=== PATIENT | female | born 1940 | race Caucasian/White ===

== ENCOUNTER 2019-04-08 17:36 | Emergency (ER) | payer MEDICARE ==
--- OUTSIDE RECORDS SUMMARY | 2019-04-08 17:54 | XMS REPORT | Continuity of Care Document ---
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 Unavailable Sage Shabazz MD Primary Care Physician Unavailable Payers Date Identification Numbers Payment Provider Subscriber Effective: 2012 Policy Number: [id number] [employer] Romy jA PayID: [id number] [place] [address] Expires: 2012 Policy Number: [id number] [employer] Romy Aj PayID: [id number] [place] [address] Policy Number: [id number] Medicare Part B Romy Jean Marie PayID: [id number] [address] [place] [address] Problems Active Problems Provider Date Osteoporosis Sage Shabazz MD Onset: 08/10/2011 Preoperative cardiovascular examination Alex Fox MD Onset: 2017 Paroxysmal supraventricular tachycardia Alex Fox MD Onset: 2017 Essential hypertension Alex Fox MD Onset: 01/04/2018 Duodenal ulcer disease Sage Shabazz MD Onset: 01/12/2018 Spondylolysis Alex Fox MD Onset: 07/16/2018 Iron deficiency anemia Sage Shabazz MD Onset: 10/03/2018 Methicillin resistant Staphylococcus Sage Shabazz MD Onset: 2018 aureus Anemia Sage Shabazz MD Onset: 10/22/2018 Thoracic and lumbosacral neuritis Sage Shabazz MD Onset: 2018 Infection following a procedure, deep Sage Shabazz MD Onset: 10/22 incisional surgical site, initial encounter Family History Date Family Member(s) Observation Comments Father Lung Cancer bronchiogenic : age 64 Mother due to Natural Causes () Children None 4 step children Siblings 4 3 sisters and a brother alive and well Social History Type Date Description Comments Sex Unknown Marital Status Single has a significant other. Lives With Friends Occupation [employer] Work Status Retired ETOH Use 04/01/2019 Denies alcohol use Tobacco Use Start: Unknown End: Patient is a former quit in 2001. She was Unknown smoker 17 years old when she started smoking. Smoking Status Reviewed: 04/01/19 Patient is a former quit in 2001. She was smoker 17 years old when she started smoking. Allergies, Adverse Reactions, Alerts Active Allergies Reaction Severity Comments Date Codeine rash 01/02/2013 Medications Active Medications SIG Qnty Indications Ordering Date Provider Ondansetron dissolve one 60tabs Sage Shabazz 03/08/2019 4mg Tablets tablet on the MD Thierry Dispers tongue q6 as needed vomiting Tramadol HCL take one tablet 90tabs M51.16 Sage Shabazz 10/09/2017 50mg Tablets by mouth every 6 MD Thierry hours as needed for pain maximum daily dose=three tablets Reference #: [id number] Sotalol HCL (AF) 1/2 tablet by 180tabs Dominique 80mg mouth twice a Alex Jin MD Tablets day Rifampin Bacilio Cui 300mg Capsules TAMARA Omeprazole Mike [place] 40mg Capsules DR Garcia Clindamycin HCL Take One Capsule Unknown 300mg By Mouth Four Capsules Times A Day Maximum Daily Dose 4 Dicyclomine HCL Unknown 10mg Capsules Diltiazem HCL ER Coated Unknown Beads 120mg Caps ER 24HR Pantoprazole Sodium 1 po bid Unknown 40mg Tablets DR Fairbankshlorperazine 1 po q 8 hours Unknown Maleate as needed for 5mg Tablets nausea Magnesium 1 by mouth every Unknown 400mg Tablets day History Medications Doxycycline Hyclate Take One Unknown 03/04/2019 - 100mg Capsule By 03/05/2019 Capsules Mouth Twice A Day Sulfamethoxazole/Trimetho 1 tab by mouth 20tabs Sage Shabazz 02/27/2019 - prim DS twice a day for MD Thierry 03/09/2019 800-160mg Tablets 10 days Metronidazole 1 by mouth 40tabs A09 Mele Sage 02/27/2019 - 500mg Tablets every 6 hours MD Thierry 03/09/2019 for 10 days Ciprofloxacin HCL 1 by mouth 20tabs A09 Mele Sage 02/27/2019 - 500mg Tablets twice a day for MD Thierry 03/08/2019 10 days Centrum Silver 1 by mouth 30tabs Sage Shabazz 2018 - Tablets every day MD Thierry 02/27/2019 Vitamin C 1 by mouth 30caps Sage Shabazz 2018 - 500mg Capsules every day MD Thierry 02/27/2019 Doxycycline Hyclate 1 cap by mouth 20caps Sage Shabazz 10/22/2018 - 100mg twice a day MD Thierry 12/12/2018 Capsules Diltiazem HCL ER 1 by mouth 90ce Fox 10/22/2018 - 180mg Caps ER every day Alex Jin MD 04/01/2019 24HR Ascorbic Acid 1 by mouth 360tabs Yared Perez 10/16/2018 - 500mg Tablets twice a day 2018 Rifampin 1 by mouth 180capYared Jerry 10/16/2018 - 300mg Capsules twice a day 02/27/2019 Ferrous Sulfate 1 tablet twice 30tabs Yared Perez 10/16/2018 - 325mg Tablets a day 10/29/2018 Diltiazem HCL ER 1 by mouth 90ce Fox 07/02/2018 - 180mg Caps ER every day Alex Jin MD 10/22/2018 24HR Diltiazem CD 1 by mouth 90Sage June 12/06/2017 - 180mg Caps ER 24HR every day MD Thirery 07/02/2018 Cholestyramine dissolve and 60units R19.7 Sage Shabazz 10/25/2017 - 4gm Packet take contents MD Thierry 12/06/2017 of 1 packet in water or juice two times a day before meals Tylenol as needed Sage Shabazz 10/09/2017 - 325mg Capsules MD Thierry 02/27/2019 Celecoxib 1 by mouth 30caps M51.16 Sage Shabazz 08/23/2017 - 200mg Capsules every day as MD Thierry 10/09/2017 needed Gabapentin 1 by mouth tid 30caps Sage Shabazz 07/13/2016 - 300mg Capsules MD Thierry 08/23/2017 Acular 1 gtt in 5ml H04.122 Sage Shabazz 03/11/2016 - 0.5% Solution affected eye MD Thierry 10/25/2017 every 8 hours prn Citracal/Vitamin D Sage Shabazz 03/11/2016 - MD Thierry 10/09/2017 [id number] Tablets Citracal/Vitamin D Sage Shabazz 03/11/2016 - MD Thierry 03/11/2016 [id number] Tablets Naproxen 1 by mouth 60tabs Sage Shabazz 12/11/2013 - 500mg Tablets twice a day as MD Thierry 08/23/2017 needed with food Fluticasone Propionate 1 spray each 1units 465.9 Sage Shabazz 12/11/2013 - nostril daily MD Thierry 10/09/2017 50mcg/Act Suspension Benzonatate 1 po tid prn 60caps 465.9 Sage Shabazz 11/18/2013 - 200mg Capsules MD Thierry 12/11/2013 Suprep Bowel Prep use as 1box 154.0 Sage Shabazz 04/23/2013 - Solution directed, per MD Thierry 12/11/2013 office instructions. Codeine Sulfate 1 tab po qhs 30tabs 465.9 Parent, 09/27/2012 - 30mg Tablets prn cough MD Tesha 12/31/2012 Benzonatate 1 po tid prn 60caps 465.9 Gabbi, 07/20/2011 - 200mg Capsules MD Tesha 12/31/2012 Cefdinir 1 po bid for 10 20caps 486 Sage Shabazz 01/17/2011 - 300mg Capsules days MD Thierry 07/20/2011 Benzonatate 1 po tid prn 30caps 486 Sage Shabazz 01/17/2011 - 200mg Capsules MD Thierry 07/20/2011 Fosamax one po weekly 4tabs Sage Shabazz 08/09/2010 - 70mg Tablets MD Thierry 01/17/2011 Bactrim DS 1 po bid for 5 10tabs Sage Shabazz 07/06/2010 - 800-160mg Tablets days MD Thierry 01/17/2011 Centrum 1 po daily Sage Shabazz 07/06/2010 - Tablets MD Thierry 10/09/2017 Citracal/Vitamin D 1 po daily 180tabs Sage Shabazz 07/06/2010 - MD Thierry 03/11/2016 [id number] Tablets Imodium A-D prn Sage Shabazz 07/06/2010 - 2mg Tablets MD Thierry 10/09/2017 Naproxen 1 po bid Bacilio Cui - 500mg Tablets PA 10/09/2017 Carafate before lunch Florence, - 1GM/10ML Suspension and before Intik[facility] # 01/15/2018 dinner Omeprazole 1 po daily Florence, - 40mg Capsules DR Mckeon # 10/22/2018 Sucralfate tid Florence, - 1gm Tablets Intikb # 07/16/2018 Multivitamin Adult 1 by mouth Unknown - Tablets every day 10/22/2018 Furosemide 1 by mouth Unknown - 20mg Tablets every day 10/29/2018 Carafate 1 tab by mouth Unknown - 1gm Tablets four times a 10/28/2018 day for acid reflux Magnesium Oxide 1 by mouth Unknown - 400mg Tablets twice a day 10/29/2018 Potassium Chloride ER 1 by mouth Unknown - 20Meq every day 10/29/2018 Tablets ER Probiotic 1 by mouth day Unknown - Capsules 12/26/2018 Doxycycline Hyclate 1 cap by mouth Unknown - 100mg twice a day 12/30/2018 Capsules Doxycycline Hyclate Bacilio Cui - 100mg PA 03/11/2019 Tablets Bacilio Guevara - 4mg TBPK PA 03/11/2019 Sotalol HCL Unknown - 80mg Tablets 04/01/2019 Medications Administered in Office Medication SIG Qnty Indications Ordering Provider Date Echocardiography 2D, With M-Mode Jaylin Rivero 09/24/2018 With Spectral And Color Doppler Injection Echocardiography 2D, With M-Mode Jaylin Rivero 12/20/2017 With Spectral And Color Doppler Injection Immunizations CPT Code Status Date Vaccine Lot # [id number] Given 07/23/2018 Influenza High Dose 65&Up [id number] 91213 Given 08/23/2017 Influenza High Dose 65&Up [id number] 48132 Given 07/01/2016 Influenza High Dose 65&Up [id number] Q2038 Given 07/23/2015 Influenza Vaccine [id number] 32046 Given 07/23/2015 Prevnar 13 [id number] Q2038 Given 08/04/2014 Influenza Vaccine [id number] Q2038 Given 07/10/2013 Influenza Vaccine [id number] 47133 Given 04/23/2013 Tdap [id number] 96942 Given 09/27/2012 Zoster Vaccine, Live For Subcu [id number] Q2038 Given 07/27/2012 Influenza Vaccine [id number] Q2038 Given 06/20/2011 Influenza Vaccine [id number] 66604 Given 06/20/2011 Pneumococcal Vaccine [id number] 19619 Given 07/06/2010 Influenza Virus Whole [id number] 35349 Given 06/26/2009 Influenza Virus Whole 05960 Given 08/13/2008 Influenza Virus Whole Vital Signs Date Vital Result Comment 04/01/2019 2:17pm Height 65 inches 5'5" Weight 97.25 lb Weight 44.113 kg Body Temperature 97.0 F Body Temperature 36.1 C Heart Rate 96 /min O2 % BldC Oximetry 98 % Respiratory Rate 20 /min BP Systolic 86 mmHg BP Diastolic 58 mmHg Pain Level 4 belly pain BMI (Body Mass Index) 16.2 kg/m2 BP Systolic Recheck 102 mmHg BP Diastolic Recheck 66 mmHg 03/11/2019 10:54am Height 65 inches 5'5" Weight 91.00 lb Weight 41.278 kg Heart Rate 96 /min O2 % BldC Oximetry 97 % BP Systolic 98 mmHg BP Diastolic 50 mmHg Pain Level 8 stomach BMI (Body Mass Index) 15.1 kg/m2 03/08/2019 11:47am Weight 92.00 lb Weight 41.731 kg Body Temperature 98.0 F Body Temperature 36.7 C Heart Rate 88 /min O2 % BldC Oximetry 99 % Respiratory Rate 20 /min BP Systolic 102 mmHg BP Diastolic 48 mmHg Pain Level 0 02/27/2019 11:53am Weight 88.00 lb Weight 39.917 kg Body Temperature 98.0 F Body Temperature 36.7 C Heart Rate 88 /min O2 % BldC Oximetry 96 % Respiratory Rate 20 /min BP Systolic 74 mmHg BP Diastolic 42 mmHg Pain Level 0 BP Systolic Recheck 100 mmHg BP Diastolic Recheck 50 mmHg 01/14/2019 9:25am Height 65 inches 5'5" Weight 91.50 lb Weight 41.504 kg Heart Rate 115 /min O2 % BldC Oximetry 97 % BP Systolic 118 mmHg BP Diastolic 60 mmHg BMI (Body Mass Index) 15.2 kg/m2 12/27/2018 8:52am Height 65 inches 5'5" Weight 95.00 lb Weight 43.092 kg Body Temperature 98.2 F Body Temperature 36.8 C Heart Rate 112 /min O2 % BldC Oximetry 98 % BP Systolic 122 mmHg BP Diastolic 66 mmHg Pain Level 0 BMI (Body Mass Index) 15.8 kg/m2 11/26/2018 10:28am Height 65 inches 5'5" Weight 97.00 lb Weight 43.999 kg Heart Rate 102 /min O2 % BldC Oximetry 94 % BP Systolic 132 mmHg BP Diastolic 78 mmHg Pain Level 0 BMI (Body Mass Index) 16.1 kg/m2 2018 10:42am Weight 97.00 lb Weight 43.999 kg Body Temperature 98.0 F Body Temperature 36.7 C Heart Rate 65 /min O2 % BldC Oximetry 98 % Respiratory Rate 20 /min BP Systolic 120 mmHg BP Diastolic 58 mmHg Pain Level 0 11/19/2018 9:56am Height 65 inches 5'5" Weight 98.00 lb Weight 44.453 kg Heart Rate 107 /min O2 % BldC Oximetry 98 % BP Systolic 110 mmHg BP Diastolic 70 mmHg Pain Level 7 lower back BMI (Body Mass Index) 16.3 kg/m2 10/29/2018 8:36am Height 65 inches 5'5" Weight 94.75 lb Weight 42.979 kg Body Temperature 98.0 F Body Temperature 36.7 C Heart Rate 70 /min O2 % BldC Oximetry 96 % BP Systolic 122 mmHg BP Diastolic 68 mmHg Pain Level 7 mid back BMI (Body Mass Index) 15.8 kg/m2 10/22/2018 11:41am Weight 94.00 lb Weight 42.638 kg Body Temperature 97.3 F Body Temperature 36.3 C Heart Rate 101 /min O2 % BldC Oximetry 98 % Respiratory Rate 24 /min BP Systolic 80 mmHg BP Diastolic 58 mmHg Pain Level 8 BP Systolic Recheck 114 mmHg BP Diastolic Recheck 64 mmHg 07/23/2018 3:45pm Weight 115.00 lb Weight 52.164 kg Body Temperature 96.5 F Body Temperature 35.8 C Heart Rate 87 /min O2 % BldC Oximetry 96 % Respiratory Rate 17 /min BP Systolic 110 mmHg BP Diastolic 70 mmHg Pain Level 3 07/19/2018 9:25am Body Temperature 97.3 F Body Temperature 36.3 C Heart Rate 81 /min O2 % BldC Oximetry 97 % Respiratory Rate 18 /min BP Systolic 127 mmHg BP Diastolic 70 mmHg Pain Level 7 lower back 07/16/2018 2:18pm Height 63 inches 5'3" Weight 115.00 lb Weight 52.164 kg Heart Rate 85 /min O2 % BldC Oximetry 98 % BP Systolic 138 mmHg BP Diastolic 72 mmHg Pain Level 6 BMI (Body Mass Index) 20.4 kg/m2 04/11/2018 1:58pm Height 63 inches 5'3" Weight 118.00 lb Weight 53.525 kg Body Temperature 98.4 F Body Temperature 36.9 C Heart Rate 79 /min O2 % BldC Oximetry 99 % Respiratory Rate 20 /min BP Systolic 140 mmHg BP Diastolic 62 mmHg Pain Level 4 BMI (Body Mass Index) 20.9 kg/m2 03/30/2018 9:51am Weight 115.00 lb Weight 52.164 kg Body Temperature 98.2 F Body Temperature 36.8 C Heart Rate 83 /min O2 % BldC Oximetry 97 % Respiratory Rate 15 /min BP Systolic 138 mmHg BP Diastolic 68 mmHg Pain Level 5 lower back 01/26/2018 10:01am Weight 112.00 lb Weight 50.803 kg Body Temperature 97.2 F Body Temperature 36.2 C Heart Rate 76 /min O2 % BldC Oximetry 98 % Respiratory Rate 20 /min BP Systolic 128 mmHg BP Diastolic 76 mmHg Pain Level 0 01/22/2018 3:02pm Height 63.5 inches 5'3.50" Weight 114.00 lb Weight 51.710 kg Heart Rate 90 /min O2 % BldC Oximetry 98 % BP Systolic 160 mmHg BP Diastolic 72 mmHg BMI (Body Mass Index) 19.9 kg/m2 01/15/2018 2:39pm Height 63.5 inches 5'3.50" Weight 113.00 lb Weight 51.257 kg Body Temperature 98.8 F Body Temperature 37.1 C Heart Rate 82 /min O2 % BldC Oximetry 99 % Respiratory Rate 20 /min BP Systolic 122 mmHg BP Diastolic 60 mmHg Pain Level 0 BMI (Body Mass Index) 19.7 kg/m2 01/04/2018 11:40am Height 63.5 inches 5'3.50" Weight 115.00 lb Weight 52.164 kg Heart Rate 87 /min O2 % BldC Oximetry 98 % BP Systolic 158 mmHg BP Diastolic 76 mmHg Pain Level 10 back, left leg BMI (Body Mass Index) 20.0 kg/m2 12/06/2017 11:35am Height 63.5 inches 5'3.50" Weight 118.00 lb Weight 53.525 kg Body Temperature 97.5 F Body Temperature 36.4 C Heart Rate 78 /min O2 % BldC Oximetry 99 % Respiratory Rate 20 /min BP Systolic 152 mmHg BP Diastolic 72 mmHg Pain Level 0 BMI (Body Mass Index) 20.6 kg/m2 BP Systolic Recheck 148 mmHg BP Diastolic Recheck 80 mmHg 11/16/2017 10:04am Height 63.5 inches 5'3.50" Weight 120.00 lb Weight 54.432 kg Heart Rate 97 /min O2 % BldC Oximetry 98 % BP Systolic 124 mmHg BP Diastolic 62 mmHg Pain Level 7 back BMI (Body Mass Index) 20.9 kg/m2 10/25/2017 11:03am Height 63.5 inches 5'3.50" Weight 123.00 lb Weight 55.793 kg Body Temperature 97.5 F Body Temperature 36.4 C Heart Rate 73 /min O2 % BldC Oximetry 98 % Respiratory Rate 20 /min BP Systolic 168 mmHg BP Diastolic 62 mmHg Pain Level 8 BMI (Body Mass Index) 21.4 kg/m2 10/09/2017 11:49am Height 63.5 inches 5'3.50" Weight 123.00 lb Weight 55.793 kg Body Temperature 97.0 F Body Temperature 36.1 C Heart Rate 97 /min O2 % BldC Oximetry 98 % Respiratory Rate 20 /min BP Systolic 114 mmHg BP Diastolic 60 mmHg Pain Level 9 BMI (Body Mass Index) 21.4 kg/m2 08/23/2017 9:58am Height 63.5 inches 5'3.50" Weight 133.00 lb Weight 60.329 kg Body Temperature 98.0 F Body Temperature 36.7 C Heart Rate 71 /min O2 % BldC Oximetry 99 % Respiratory Rate 20 /min BP Systolic 128 mmHg BP Diastolic 60 mmHg Pain Level 9 BMI (Body Mass Index) 23.2 kg/m2 03/11/2016 9:40am Height 63.5 inches 5'3.50" Weight 128.00 lb Weight 58.061 kg Body Temperature 98.2 F Body Temperature 36.8 C Heart Rate 73 /min O2 % BldC Oximetry 98 % Respiratory Rate 16 /min BP Systolic 102 mmHg BP Diastolic 60 mmHg Pain Level 7 eyes BMI (Body Mass Index) 22.3 kg/m2 12/11/2013 1:32pm Height 63.5 inches 5'3.50" Weight 138.00 lb Weight 62.597 kg Body Temperature 98.0 F Body Temperature 36.7 C Heart Rate 89 /min O2 % BldC Oximetry 98 % Respiratory Rate 20 /min BP Systolic 128 mmHg BP Diastolic 80 mmHg Pain Level 0 BMI (Body Mass Index) 24.1 kg/m2 04/23/2013 10:36am Height 63.5 inches 5'3.50" Weight 142.00 lb Weight 64.411 kg Body Temperature 97.1 F Body Temperature 36.2 C Heart Rate 73 /min O2 % BldC Oximetry 98 % Respiratory Rate 20 /min BP Systolic 120 mmHg BP Diastolic 70 mmHg Pain Level 0 BMI (Body Mass Index) 24.8 kg/m2 12/31/2012 1:34pm Height 63.5 inches 5'3.50" Weight 141.00 lb Weight 63.958 kg Body Temperature 97.9 F Body Temperature 36.6 C Heart Rate 84 /min O2 % BldC Oximetry 96 % Respiratory Rate 20 /min BP Systolic 122 mmHg BP Diastolic 82 mmHg Pain Level 5 BMI (Body Mass Index) 24.6 kg/m2 09/27/2012 11:24am Height 63.5 inches 5'3.50" Weight 143.00 lb Weight 64.865 kg Body Temperature 98.4 F Body Temperature 36.9 C Heart Rate 95 /min O2 % BldC Oximetry 97 % Respiratory Rate 16 /min BP Systolic 102 mmHg BP Diastolic 58 mmHg Pain Level 0 BMI (Body Mass Index) 24.9 kg/m2 07/20/2011 10:55am Height 63.5 inches 5'3.50" Weight 144.00 lb Weight 65.318 kg Body Temperature 98.0 F Body Temperature 36.7 C Heart Rate 73 /min O2 % BldC Oximetry 97 % Respiratory Rate 20 /min BP Systolic 102 mmHg BP Diastolic 70 mmHg Pain Level 0 BMI (Body Mass Index) 25.1 kg/m2 01/17/2011 11:37am Height 63.5 inches 5'3.50" Weight 137.00 lb Weight 62.143 kg Body Temperature 97.8 F Body Temperature 36.6 C Heart Rate 77 /min O2 % BldC Oximetry 95 % Respiratory Rate 20 /min BP Systolic 106 mmHg BP Diastolic 62 mmHg Pain Level 2 BMI (Body Mass Index) 23.9 kg/m2 07/06/2010 11:05am Weight 141.25 lb Weight 64.071 kg Body Temperature 98.0 F Body Temperature 36.7 C Heart Rate 69 /min O2 % BldC Oximetry 98 % Respiratory Rate 20 /min BP Systolic 110 mmHg BP Diastolic 60 mmHg Pain Level 0 Results Test Date Facility Test Result H/L Range Note Comprehensive W/Ratios 02/27/2019 [facility] Glucose 118 mg/dL High 75-100 [phone] BUN 11 mg/dL 7-18 Creatinine, Serum 0.72 mg/dL 0.60-1.00 Sodium 136 mmol/L 136-145 Potassium 3.8 mmol/L 3.5-5.1 Chloride 96 mmol/L Low 98-107 Carbon Dioxide 25 mmol/L 21-32 Albumin 3.9 g/dL 3.4-5.0 Protein, Total 6.5 g/dL 6.4-8.5 Calcium 9.8 mg/dL 8.2-10.6 Alkaline Phosphatase 91 U/L 40-129 Sgot (Ast) 16 U/L 15-37 SGPT (Alt) 6 U/L 0-33 Bilirubin, Total 0.4 mg/dL 0.0-1.0 BUN/Creatinine Ratio 15.3 6.0-20.0 Globulin 2.6 g/dL 2.3-3.5 Anion Gap 15.0 mmol/L 7.0-16.0 A/G Ratio 1.5 CBC 02/27/2019 [facility] WBC 7.4 x10E3/uL 4.3-10.9 [phone] RBC 3.29 x10E6/uL Low 4.00-5.40 Hemoglobin 9.5 g/dL Low 11.8-15.8 Hematocrit 30.7 % Low 35.0-47.0 MCV 93.3 fl 82.0-98.0 MCH 28.9 pg 27.5-33.5 MCHC 30.9 g/dL Low 32.0-36.0 RDW 14.0 % 11.5-14.5 Platelet Count 369 x10E3/uL 130-400 MPV 9.4 fl 6.5-10.5 Segmented Neutrophils 74.0 % 44.0-74.0 Lymphocytes 19.0 % 15.0-45.0 Monocytes 5.9 % 2.0-13.0 Eosinophils 0.4 % 0.0-6.0 Basophils 0.4 % 0.0-2.0 Ig% 0.3 % 0.0-1.0 Neutrophil Absolute 5.5 x10E3/uL 1.4-7.0 Lymphocytes Absolute 1.4 x10E3/uL 1.0-3.4 Monocyte Absolute 0.4 x10E3/uL 0.2-1.0 Eosinophil Absolute 0.0 x10E3/uL 0.0-0.5 Basophil Absolute 0.0 x10E3/uL 0.0-0.2 Laboratory test 02/27/2019 [facility] Sedimentation Rate 30 MM/HR 1-30 finding [phone] Egfr 02/27/2019 [facility] Estimated GFR (CALCULATE (Calculated) [phone]) Egfr 81 1 Egfr, -Georgian 94 2 Egfr (Calculated) 01/29/2019 [facility] Estimated GFR ( CALCULATED) [phone] Egfr 84 3 Egfr, -Georgian 97 4 Laboratory test 01/29/2019 [facility] Creatinine, 0.70 mg/ dL 0.60-1.00 finding [phone] Serum BUN 14 mg/dL 7-18 Laboratory test 01/09/2019 [facility] MRSA Screen Negative for 5 finding [phone] By PCR MRS <SEE NOTE> Laboratory test 01/09/2019 [facility] MRSA Screen NEGATIVE FOR 6 finding [phone] MRS <SEE NOTE> Basic Metabolic 10/29/2018 [facility] Glucose 118 mg/dL High 75-10 W/Ratio [phone] BUN 15 mg/dL 7-18 Creatinine, Serum 0.90 mg/dL 0.60-1.00 Sodium 140 mmol/L 136-145 Potassium 5.6 mmol/L High 3.5-5.1 Chloride 101 mmol/L 98-107 Carbon Dioxide 25 mmol/L 21-32 Calcium 9.7 mg/dL 8.2-10.6 BUN/Creatinine Ratio 16.7 6.0-20.0 Anion Gap 14.0 mmol/L 7.0-16.0 Laboratory test 10/29/2018 [facility] Magnesium 1.8 mg/dL 1.8-2.4 finding [phone] Egfr (Calculated) 10/29/2018 [facility] Estimated GFR ( CALCULATED [phone] Egfr 62 7 Egfr, -Georgian 72 8 CBC 10/22/2018 [facility] WBC 7.6 x10E3/uL 4.3-10.9 [phone] RBC 4.37 x10E6/uL 4.00-5.40 Hemoglobin 12.6 g/dL 11.8-15.8 Hematocrit 40.6 % 35.0-47.0 MCV 92.9 fl 82.0-98.0 MCH 28.8 pg 27.5-33.5 MCHC 31.0 g/dL Low 32.0-36.0 RDW 16.0 % High 11.5-14.5 Platelet Count 411 x10E3/uL High 130-400 MPV 9.7 fl 6.5-10.5 Segmented Neutrophils 71.0 % 44.0-74.0 Lymphocytes 19.1 % 15.0-45.0 Monocytes 6.7 % 2.0-13.0 Eosinophils 2.4 % 0.0-6.0 Basophils 0.5 % 0.0-2.0 Ig% 0.3 % 0.0-1.0 Neutrophil Absolute 5.4 x10E3/uL 1.4-7.0 Lymphocytes Absolute 1.5 x10E3/uL 1.0-3.4 Monocyte Absolute 0.5 x10E3/uL 0.2-1.0 Eosinophil Absolute 0.2 x10E3/uL 0.0-0.5 Basophil Absolute 0.0 x10E3/uL 0.0-0.2 CBC 01/26/2018 [facility] WBC 5.7 x10E3/uL 4.3-10.9 [phone] RBC 4.14 x10E6/uL 4.00-5.40 Hemoglobin 12.5 g/dL 11.8-15.8 Hematocrit 40.1 % 35.0-47.0 MCV 96.9 fl 82.0-98.0 MCH 30.2 pg 27.5-33.5 MCHC 31.2 g/dL Low 32.0-36.0 RDW 13.8 % 11.5-14.5 Platelet Count 280 x10E3/uL 130-400 MPV 9.6 fl 6.5-10.5 Segmented Neutrophils 67.5 % 44.0-74.0 Lymphocytes 25.2 % 15.0-45.0 Monocytes 5.3 % 2.0-13.0 Eosinophils 0.9 % 0.0-6.0 Basophils 0.7 % 0.0-2.0 Ig% 0.4 fl 0.0-1.0 Neutrophil Absolute 3.8 x10E3/uL 1.4-7.0 Lymphocytes Absolute 1.4 x10E3/uL 1.0-3.4 Monocyte Absolute 0.3 x10E3/uL 0.2-1.0 Eosinophil Absolute 0.1 x10E3/uL 0.0-0.5 Basophil Absolute 0.0 x10E3/uL 0.0-0.2 Laboratory test 01/04/2018 [facility] TSH (Thyrotropin) 1.67 0.34-4.82 finding [phone]/ml T-4 Free 1.25 ng/dL 0.59-1.57 CBC 12/06/2017 [facility] WBC 5.4 x10E3/uL 4.3-10.9 9 [phone] RBC 3.59 x10E6/uL Low 4.00-5.40 Hemoglobin 10.7 g/dL Low 11.8-15.8 Hematocrit 33.3 % Low 35.0-47.0 MCV 92.8 fl 82.0-98.0 MCH 29.8 pg 27.5-33.5 MCHC 32.1 g/dL 32.0-36.0 RDW 16.1 % High 11.5-14.5 Platelet Count 252 x10E3/uL 130-400 MPV 10.2 fl 6.5-10.5 Segmented Neutrophils 73.4 % 44.0-74.0 Lymphocytes 20.1 % 15.0-45.0 Monocytes 4.5 % 2.0-13.0 Eosinophils 0.9 % 0.0-6.0 Basophils 0.9 % 0.0-2.0 Ig% 0.2 fl 0.0-1.0 Neutrophil Absolute 4.0 x10E3/uL 1.4-7.0 Lymphocytes Absolute 1.1 x10E3/uL 1.0-3.4 Monocyte Absolute 0.2 x10E3/uL 0.2-1.0 Eosinophil Absolute 0.0 x10E3/uL 0.0-0.5 Basophil Absolute 0.0 x10E3/uL 0.0-0.2 Eia Test For 10/10/2017 [facility] Eia Test For Negative for 10 E.Coli Toxins [phone] E.Coli Toxins E.c <SEE NOTE> Laboratory test 10/10/2017 [facility] Stool Culture Negative for 11 finding [phone] W/E.Coli Eia Cam <SEE NOTE> Cancelled Test SEE COMMENT 12 1 >59 mL/min/1.73m2 2 >59 mL/min/1.73m2 Note: Persistent reduction for 3 months or more in an eGFR <60 mL/min/1.73m2 defines CKD. Patients with eGFR values >=60 mL/min/1.73m2 may also have CKD if evidence of persistent proteinuria is present. Additional information may be found at [email or web address]. 3 >59 mL/min/1.73m2 4 >59 mL/min/1.73m2 Note: Persistent reduction for 3 months or more in an eGFR <60 mL/min/1.73m2 defines CKD. Patients with eGFR values >=60 mL/min/1.73m2 may also have CKD if evidence of persistent proteinuria is present. Additional information may be found at [email or web address]. 5 Negative for MRSA by PCR. Expected Value: Negative for MRSA by PCR. 6 NEGATIVE FOR MRSA BY CULTURE SCREEN 7 >59 mL/min/1.73m2 8 >59 mL/min/1.73m2 Note: Persistent reduction for 3 months or more in an eGFR <60 mL/min/1.73m2 defines CKD. Patients with eGFR values >=60 mL/min/1.73m2 may also have CKD if evidence of persistent proteinuria is present. Additional information may be found at [email or web address]. 9 Stable or increased from Hospitalization. 10 Negative for E.coli Shiga toxins 11 Negative for Campylobacter, Salmonella, and Shigella. 12 The following test(s) has been cancelled with a brief explanation and reason for the cancellation: stool is formed per protocol, Cdiff is cancelled. Procedures Date Code Description Status 03/11/2019 68089 Electrocardiogram Complete Completed 11/26/2018 66710 Electrocardiogram Complete Completed 10/29/2018 77704 Electrocardiogram Complete Completed 10/11/2018 [address] Colonoscopy Flexible including collection of Completed specimen(s) by brush 09/24/2018 67198 Echocardiography 2D, With M-Mode With Spectral And Completed Color Doppler 09/21/2018 83639 Electrocardiogram Interpretation & Report Only Completed 08/17/2018 77610 Debridement,Bone,Epidermis/Dermis/Tissue/Muscle, Addtl Completed 20 SQ CM 08/17/2018 09241 Debridement Tissue/Muscle/Bone Completed 07/19/2018 57317 Nuclear Stress Intrepret &Report Completed 07/19/2018 27843 Cardiovascular Stress Test Physician Supervision Only Completed 07/16/2018 54392 Electrocardiogram Complete Completed 04/11/2018 84743 Electrocardiogram Complete Completed 03/02/2018 [id number] Colonoscopy Completed 01/22/2018 30899 Electrocardiogram Complete Completed 01/19/2018 20682 Event Recording Physician Review & Interpretation Completed 01/04/2018 24104 Event Recording,Connection And Disconnection Completed 01/04/2018 51641 Electrocardiogram Complete Completed 12/20/2017 11652 Echocardiography 2D, With M-Mode With Spectral And Completed Color Doppler 12/02/2017 81415 Electrocardiogram Interpretation & Report Only Completed 12/01/2017 00051 Electrocardiogram Interpretation & Report Only Completed 09/12/2017 56809 Electrocardiogram Interpretation & Report Only Completed 03/11/2016 16841 Remove Impact Cerumen Irrigati Completed 08/21/2013 [id number] Mammogram Completed 04/23/2013 59380 Electrocardiogram Complete Completed Encounters Type Date Location Provider Dx Diagnosis Office Visit 04/01/2019 Sage Villasenor K26.0 Acute duodenal 2:00p [facility] MD Thierry ulcer with hemorrhage D64.9 Anemia, unspecified C18.9 Malignant neoplasm of colon, unspecified I47.1 Supraventricular tachycardia I10 Essential (primary) hypertension 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 disc disorders w radiculopathy, lumbar region Office Visit 03/11/2019 [facility] Fox, I47.1 Supraventricular 11:00a [place] Alex Jin MD tachycardia I10 Essential (primary) hypertension 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 disc disorders w radiculopathy, lumbar region Office Visit 03/08/2019 [facility] Sage A09 Infectious 11:30a [facility] MD Thierry gastroenteritis and Center colitis, unspecified D64.9 Anemia, unspecified Office Visit 02/27/2019 [place] Sage A09 Infectious 11:15a [facility] MD Thierry gastroenteritis and Center colitis, unspecified Office Visit 01/14/2019 [facility] Yared Perez B95.62 Methicillin resis 9:15a stapcoco infct causing diseases classd elswhr Office Visit 12/27/2018 [facility] Yared Perez B95.62 Methicillin resis 8:45a stapcoco infct causing diseases classd elswhr Office Visit 11/26/2018 [facility] Wilmer Pierre, I47.1 Supraventricular 10:30a [place] PA tachycardia I44.7 Left bundle-branch block, unspecified Office Visit 2018 10:45a [facility] Shabazz Sage I10 [facility] [place] MD Thierry (primary) hypertension I47.1 Supraventricular tachycardia B95.62 Methicillin resis staph infct causing diseases classd elswhr D64.9 Anemia, unspecified 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 disc disorders w radiculopathy, lumbar region Z13.31 Encounter for screening for depression Office Visit 11/19/2018 10:00a [place] Yared Perez L98.9 Disorder of the Surgery skin and subcutaneous tissue, unspecified Z09 Encntr for f/u exam aft trtmt for cond oth than malig neoplm Office Visit 10/29/2018 [facility] Dominique, I47.1 Supraventricular 2:30p [place] Alex Jin MD tachycardia K81.1 Chronic cholecystitis I10 Essential (primary) hypertension L98.9 Disorder of the skin and subcutaneous tissue, unspecified Office Visit 10/22/2018 [facility] Sam[place] B95.62 Methicillin resis 11:00a Family Trupti Guadarrama MD stap infct Center causing diseases classd elswhr T81.42xA Infct fol a procedure, deep incisional surgical site, init D64.9 Anemia, unspecified I47.1 Supraventricular tachycardia I10 Essential (primary) hypertension 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 disc disorders w radiculopathy, lumbar region Office Visit 09/20/2018 11:04a [facility], [address], [employer] physical [facility] I10 Essential (primary) hypertension D64.9 Anemia, unspecified B95.62 Methicillin resis staph infct causing diseases classd elswhr K21.9 Gastro-esophageal reflux disease without esophagitis Office Visit 09/11/2018 11:04a [facility] I10 Essential (primary) hypertension D64.9 Anemia, unspecified Office Visit 09/06/2018 3:33p [facility] Philip Laila, [address] physical debility I10 Essential (primary) hypertension D64.9 Anemia, unspecified Office Visit 08/28/2018 [facility] Traci, T81.42xA Infct fol a 3:52p Faby Rodríguez NP procedure, deep Hospital incisional surgical site, init B95.62 Methicillin resis staph infct causing diseases classd elswhr I10 Essential (primary) hypertension K21.9 Gastro-esophageal reflux disease without esophagitis E87.6 Hypokalemia Office Visit 07/23/2018 Sage Urena Z01.818 Encounter for 3:30p Family Trupti Guadarrama MD other Center preprocedural examination Z23 Encounter for immunization 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 disc disorders w radiculopathy, lumbar region Office Visit 07/16/2018 [facility], Z01.810 Encounter for 2:00p Center Alex Jin MD preprocedural cardiovascular examination I10 Essential (primary) hypertension I47.1 Supraventricular tachycardia M43.07 Spondylolysis, lumbosacral region Office Visit 04/11/2018 Sage Urena Z01.818 Encounter for other 2:00p Family Trupti Guadarrama MD preprocedural Center examination Office Visit 03/30/2018 Sage Urena 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 disc 9:45a [facility] MD Thierry disorders w Center radiculopathy, lumbar region I10 Essential (primary) hypertension I47.1 Supraventricular tachycardia D64.9 Anemia, unspecified C19 Malignant neoplasm of rectosigmoid junction K26.9 Duodenal ulcer, unsp as acute or chronic, w/o hemor or perf Office Visit 01/26/2018 10:00a [facility] [place] K26.9 Duodenal ulcer, Health [place] MD Thierry unsp as acute or chronic, w/o hemor or perf C19 Malignant neoplasm of rectosigmoid junction D64.9 Anemia, unspecified I47.1 Supraventricular tachycardia 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 disc disorders w radiculopathy, lumbar region I10 Essential (primary) hypertension [facility], Z01.810 Encounter for 3:00p [place] Alex Jin MD preprocedural cardiovascular examination I47.1 Supraventricular tachycardia I10 Essential (primary) hypertension K26.9 Duodenal ulcer, unsp as acute or chronic, w/o hemor or perf Office Visit 01/15/2018 2:30p [facility] Sage Shabazz K26.9 Duodenal ulcer, [facility] MD Thierry unsp as acute or chronic, w/o hemor or perf C19 Malignant neoplasm of rectosigmoid junction D64.9 Anemia, unspecified I47.1 Supraventricular tachycardia 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 disc disorders w radiculopathy, lumbar region Office Visit 01/04/2018 [facility] Fox, Z01.810 Encounter for 11:00a [place] Alex Jin MD preprocedural cardiovascular examination I47.1 Supraventricular tachycardia I10 Essential (primary) hypertension Office Visit 12/06/2017 [place] [facility] Sage I47.1 Supraventricular 11:00a [facility] MD Thierry tachycardia Center D64.9 Anemia, unspecified K26.9 Duodenal ulcer, unsp as acute or chronic, w/o hemor or perf C19 Malignant neoplasm of rectosigmoid junction I10 Essential (primary) hypertension 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 disc disorders w radiculopathy, lumbar region Office Visit 11/16/2017 10:15a [place] Yared Crawford R19.7 MD Velia unspecified 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 disc disorders w radiculopathy, lumbar region Office Visit 10/25/2017 10:15a Sage Urena R19.7 Diarrhea, Family Trupti Guadarrama MD unspecified Center 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 disc disorders w radiculopathy, lumbar region Office Visit 10/09/2017 11:00a Sage Urena R19.7 Diarrhea, Family Trupti Guadarrama MD unspecified Center 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 disc disorders w radiculopathy, lumbar region N19 Unspecified kidney failure Office Visit 09/14/2017 2:28p [facility] Trcai R10.9 Unspecified [facility] MARCIAL Rodríguez abdominal pain Hospital N19 Unspecified kidney failure Office Visit 09/12/2017 2:57p [facility] Yared Perez R10.9 Unspecified [facility] abdominal pain Hospital R11.10 Vomiting, unspecified Office Visit 08/23/2017 Sage Urena 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 disc 9:45a Family Trupti Guadarrama MD disorders w Center radiculopathy, lumbar region Z23 Encounter for immunization Office Visit 03/11/2016 9:45a Sage Villasenor H04.122 [facility] eye [facility] MD Thierry syndrome of left lacrimal gland H61.23 Impacted cerumen, bilateral Office Visit 12/11/2013 1:30p Sage Urena 465.9 URI Upper Family Trupti Guadarrama MD Respiratory Center Infections Acute Unspec Sites Office Visit 04/23/2013 10:30a Sage Urena 366.9 Cataract Unspec Family Trupti Guadarrama MD Center V06.1 Qboxjvztxi-Hgxixcq-Mawydgza Combined (DTaP) V72.83 Examination Preoperative Other Spec V72.84 Examination Preoperative Unspec 154.0 Malignant Neoplasm Rectosigmoid Junction V76.12 Screening Mammogram Malig Lamine Other Office Visit 12/31/2012 Sage Urena 726.32 Epicondylitis 1:30p Family Trupti Guadarrama MD Lateral Center Office Visit 09/27/2012 [place] Seo, 465.9 URI Upper 11:15a Family Trupti Parkinson MD Respiratory Center Infections Acute Unspec Sites Office Visit 07/20/2011 Sage Urena 465.9 URI Upper 10:30a Family Trupti Guadarrama MD Respiratory Center Infections Acute Unspec Sites 009.1 Colitis Enteritis & Gastroenteritis Presumed Infectious Orig Office Visit 01/17/2011 11:15a [place] Sage Shabazz 486 Pneumonia Health Center MD Thierry Organism Unspec Office Visit 07/06/2010 11:00a [place] Guzman Sage Shabazz 682.9 Cellulitis & Health Center MD Thierry Abscess Unspec Site 733.00 Osteoporosis Unspec V04.81 Need For Prophylactic Vaccination & Inoculation/Influenza Office Visit 05/29/2009 [place] MeleSage 465.9 URI Upper 11:45a Family Trupti Guadarrama MD Respiratory Center Infections Acute Unspec Sites Office Visit 08/13/2008 [place] Mele Sage 053.19 Herpes Zoster 2:30p Family Trupti Guadarrama MD Nervous System Center Other Office Visit 07/02/2008 [place] Sage Shabazz 053.10 Herpes Zoster 3:15p Family Trupti Guadarrama MD W/Unspec Nervous Center System Complication Office Visit 06/11/2008 [place] MeleSage 789.00 Pain Abdominal 1:30p Family Trupti Guadarrama MD Unspec Site Center 053.9 Herpes Zoster W/O Complication 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 Office Visit 05/12/2008 [place] Sage Shabazz 053.9 Herpes Zoster W/O 2:00p Family Trupti Guadarrama MD Complication Center Office Visit 03/12/2008 Te[place] MeleSage 715.90 Osteoarthrosis 10:30a Family Trupti Guadarrama MD Unspec Genlzd Or Center Localzd Site Unspec 599.0 UTI Urinary Tract Infection Site Not Spec 154.0 Malignant Neoplasm Rectosigmoid Junction Office Visit 03/04/2008 2:00p [facility] 599.0 UTI Urinary Tract Family Trupti Guadarrama MD Infection Site Center Not Spec Office Visit 09/11/2007 9:50a Sage Urena V70.0 Examination Family Trupti Guadarrama MD [facility] Routine AT Health Care Facility V72.31 Routine Armature And Rotor Winder Examination V76.10 Screening For Malignant Neoplasm Breast 790.29 Other Abnormal Glucose Office Visit 09/03/2007 [place] Sage Shabazz 627.1 Postmenopausal 2:30p Family Trupti Guadarrama MD Bleeding Center Plan of Treatment Future Appointment(s):05/06/2019 10:45 am - Sage Shabazz MD at [facility]06/24/2019 11:00 am - Wilmer Pierre PA at [facility]04/01/2019 - Sage Shabazz MDK26.0 Acute duodenal ulcer with hemorrhageComments:Abdominal pain is improving. No further blood in the stool seen or hematemesis. Has follow up withGI on April 11. She remains on pantorazole and has not been taking NSAIDs. Appetite improving andtolerating PO. Remain concerned as the transvers colon thickening has been persistent on more than one scan, predating the ulceration. Plan at discharge was to repeat the CT in 2-3 weeks, but will also likely need repeat colonoscopy.D64.9 Anemia, unspecifiedNew Labs:CBC, Ordered: 04/01/19Comments: Transfused in the hospital. Repeat CBC today to see if stable.C18.9 Malignant neoplasm of colon, unspecifiedComments:As referenced eraxyG44.1 Supraventricular tachycardiaComments:Patient is rate controlled. Continue diltiazem and sotalol as reduced in the hospital. BP improvedon check with more appropriate cuff size.I10 Essential (primary) hypertensionNew Labs: Comprehensive W/Ratios, Ordered: 04/01/19Magnesium, Ordered: 04/01/19Comments: Blood pressure improved when used a more appropriate cuff size. Her antihypertensive doses or sotalol and diltiazem were decreased in the hospital secondary to hypotension.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 disc disorders with radiculopathy , lumbar regComments:Stable
--- OUTSIDE RECORDS SUMMARY | 2019-04-08 17:54 | XMS REPORT | Continuity of Care Document ---
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 Lives With Friends Occupation [employer] Work Status Retired ETOH Use Denies alcohol use Tobacco Use Start: Unknown End: Patient is a former quit in 2001. She was Unknown smoker 17 years old when she started smoking. Smoking Status Reviewed: 03/08/19 Patient is a former quit in 2001. She was smoker 17 years old when she started smoking. Allergies, Adverse Reactions, Alerts Active Allergies Reaction Severity Comments Date Codeine rash 01/02/2013 Medications Active Medications SIG Qnty Indications Ordering Date Provider Ondansetron dissolve one 60tabs Sage Shabazz 03/08/2019 4mg tablet on the MD Thierry Tablets Dispers tongue q6 as needed vomiting Diltiazem HCL ER 1 by mouth every 90caps Alex Fox 10/22/2018 day MD Annabel 180mg Caps ER 24HR Tramadol HCL take one tablet by 90tabs M51.16 Sage Shabazz 10/09/2017 50mg mouth every 6 MD Thierry Tablets hours as needed for pain maximum daily dose=three tablets Reference #: [id number] Sotalol HCL (AF) 1 tablet by mouth 180tabs Alex Fox 80mg twice a day MD Annabel Tablets Rifampin Bacilio Cui 300mg PA Capsules Omeprazole Mike Florence 40mg # Capsules Clindamycin HCL Take One Capsule Unknown 300mg By Mouth Four Capsules Times A Day Maximum Daily Dose 4 History Medications Doxycycline Hyclate Take One Unknown 03/04/2019 - 100mg Capsule By 03/05/2019 Capsules Mouth Twice A Day Ciprofloxacin HCL 1 by mouth 20tabs A09 Sage Shabazz 02/27/2019 - 500mg Tablets twice a day for MD Thierry 03/08/2019 10 days Metronidazole 1 by mouth 40tabs A09 Sage Shabazz 02/27/2019 - 500mg Tablets every 6 hours MD Thierry 03/09/2019 for 10 days Sulfamethoxazole/Trimetho 1 tab by mouth 20tabs Sage Shabazz 02/27/2019 - prim DS twice a day for MD Thierry 03/09/2019 800-160mg Tablets 10 days Centrum Silver 1 by mouth 30tabs Sage Shabazz 2018 - Tablets every day MD Thierry 02/27/2019 Vitamin C 1 by mouth 30caps Sage Shabazz 2018 - 500mg Capsules every day MD Thierry 02/27/2019 Doxycycline Hyclate 1 cap by mouth 20caps Sage Shabazz 10/22/2018 - 100mg twice a day MD Thierry 12/12/2018 Capsules Ascorbic Acid 1 by mouth 360tabs Yared Perez 10/16/2018 - 500mg Tablets twice a day 2018 Rifampin 1 by mouth 180caps Yared Perez 10/16/2018 - 300mg Capsules twice a day 02/27/2019 Ferrous Sulfate 1 tablet twice 30tabs Yared Perez 10/16/2018 - 325mg Tablets a day 10/29/2018 Diltiazem HCL ER 1 by mouth 90emorys Dominique 07/02/2018 - 180mg Caps ER every day Alex Jin MD 10/22/2018 24HR Diltiazem CD 1 by mouth 90Sage June 12/06/2017 - 180mg Caps ER 24HR every day MD Thierry 07/02/2018 Cholestyramine dissolve and 60units R19.7 Sage [...] 07/13/2016 - 300mg Capsules MD Thierry 08/23/2017 Citracal/Vitamin D Sage Shabazz 03/11/2016 - MD Thierry 03/11/2016 [id number] Tablets Citracal/Vitamin D Sage Shabazz 03/11/2016 - MD Thierry 10/09/2017 [id number] Tablets Acular 1 gtt in 5ml H04.122 Sage Shabazz 03/11/2016 - 0.5% Solution affected eye MD Thierry 10/25/2017 every 8 hours prn Fluticasone Propionate 1 spray each 1units 465.9 Sage Shabazz 12/11/2013 - nostril daily MD Thierry 10/09/2017 50mcg/Act Suspension Naproxen 1 by mouth 60tabs Sage Shabazz 12/11/2013 - 500mg Tablets twice a day as MD Thierry 08/23/2017 needed with food Benzonatate 1 po tid prn 60caps 465.9 [...] po bid for 10 20caps 486 Sage Shaabzz 01/17/2011 - 300mg Capsules days MD Thierry [...] Sage Shabazz 07/06/2010 - MD Thierry 03/11/2016 [id number] Tablets Imodium A-D prn Sage Shabazz 07/06/2010 - 2mg Tablets MD Thierry 10/09/2017 Bacilio Aiken - 4mg TBPK PA 03/11/2019 Doxycycline Hyclate Bacilio Cui - 100mg PA 03/11/2019 Tablets Doxycycline Hyclate 1 cap by mouth Unknown - 100mg twice a day 12/30/2018 Capsules Probiotic 1 by mouth day Unknown - Capsules 12/26/2018 Potassium Chloride ER 1 by mouth Unknown - 20Meq every day 10/29/2018 Tablets ER Magnesium Oxide 1 by mouth Unknown - 400mg Tablets twice a day 10/29/2018 Carafate 1 tab by mouth Unknown - 1gm Tablets four times a 10/28/2018 day for acid reflux Furosemide 1 by mouth Unknown - 20mg Tablets every day 10/29/2018 Multivitamin Adult 1 by mouth Unknown - Tablets every day 10/22/2018 Sucralfate tid Florence, - 1gm Tablets [facility] # 07/16/2018 Omeprazole 1 po daily Florence, - 40mg Capsules DR Mckeon # 10/22/2018 Carafate before lunch Florence, - 1GM/10ML Suspension and before [facility] # 01/15/2018 dinner Naproxen 1 po bid Bacilio Cui - 500mg Tablets PA 10/09/2017 Medications Administered in Office Medication SIG Qnty Indications Ordering Provider Date Echocardiography 2D, With M-Mode Jaylin Rivero 09/24/2018 With Spectral And Color Doppler Injection Echocardiography 2D, With M-Mode Jaylin Rivero 12/20/2017 With Spectral And Color Doppler Injection Immunizations CPT Code Status Date Vaccine Lot # [id number] Given 07/23/2018 Influenza High Dose 65&Up [id number] 00777 Given 08/23/2017 Influenza High Dose 65&Up [id number] 36514 Given 07/01/2016 Influenza High Dose 65&Up [id number] Q2038 Given 07/23/2015 Influenza Vaccine [id number] 30142 Given 07/23/2015 Prevnar 13 [id number] Q2038 Given 08/04/2014 Influenza Vaccine [id number] Q2038 Given 07/10/2013 Influenza Vaccine [id number] 53749 Given 04/23/2013 Tdap [id number] 42002 Given 09/27/2012 Zoster Vaccine, Live For Subcu [id number] Q2038 Given 07/27/2012 Influenza Vaccine [id number] Q2038 Given 06/20/2011 Influenza Vaccine [id number] 28414 Given 06/20/2011 Pneumococcal Vaccine [id number] 75528 Given 07/06/2010 Influenza Virus Whole [id number] 76886 Given 06/26/2009 Influenza Virus Whole 75869 Given 08/13/2008 Influenza Virus Whole Vital Signs Date Vital Result Comment 03/11/2019 10:54am Height 65 inches 5'5" Weight [...] Result H/L Range Note Comprehensive W/Ratios 02/27/2019 [facility] Glucose 118 mg/dL High 75-100 [phone] BUN 11 mg/dL 7-18 Creatinine, Serum 0.72 [...] mmol/L 7.0-16.0 A/G Ratio 1.5 CBC 02/27/2019 [facility] WBC 7.4 x10E3/uL 4.3-10.9 [phone] RBC 3.29 x10E6/uL Low 4.00-5.40 Hemoglobin 9.5 [...] Absolute 0.0 x10E3/uL 0.0-0.2 Laboratory test 02/27/2019 [facility] Sedimentation Rate 30 MM/HR 1-30 finding [phone] Egfr 02/27/2019 [facility] Estimated GFR (CALCULATED (Calculated) [phone] ) Egfr 81 1 Egfr, -Swedish 94 2 Egfr (Calculated) 01/29/2019 [facility] Estimated GFR (CALCULATED) [phone] Egfr 84 3 Egfr, -Swedish 97 4 Laboratory test 01/29/2019 [facility] Creatinine, 0.70 mg/dL 0.60-1.00 finding [phone] Serum BUN 14 mg/dL 7-18 Laboratory test 01/09/2019 [facility] MRSA Screen Negative for 5 finding [phone] By PCR MRS <SEE NOTE> Laboratory test 01/09/2019 [facility] MRSA Screen NEGATIVE FOR 6 finding [phone] MRS <SEE NOTE> Basic Metabolic 10/29/2018 [facility] Glucose 118 mg/dL High 75- 10 W/Ratio [phone] BUN 15 mg/dL 7-18 Creatinine, Serum 0.90 mg/dL 0.60-1.00 Sodium 140 mmol/L 136-145 Potassium 5.6 mmol/L High 3.5-5.1 Chloride 101 mmol/L 98-107 Carbon Dioxide 25 mmol/L 21-32 Calcium 9.7 mg/dL 8.2-10.6 BUN/Creatinine Ratio 16.7 6.0-20.0 Anion Gap 14.0 mmol/L 7.0-16.0 Laboratory test 10/29/2018 [facility] Magnesium 1.8 mg/dL 1.8- 2.4 finding [phone] Egfr (Calculated) 10/29/2018 [facility] Estimated GFR (CALCULATED) [phone] Egfr 62 7 Egfr, -Swedish 72 8 CBC 10/22/2018 [facility] WBC 7.6 x10E3/uL 4.3-10.9 [phone] RBC 4.37 x10E6/uL 4.00-5.40 Hemoglobin 12.6 g/dL [...] Basophil Absolute 0.0 x10E3/uL 0.0-0.2 CBC 01/26/2018 [facility] WBC 5.7 x10E3/uL 4.3-10.9 [phone] RBC 4.14 x10E6/uL 4.00-5.40 Hemoglobin 12.5 g/dL [...] Absolute 0.0 x10E3/uL 0.0-0.2 Laboratory test 01/04/2018 [facility] TSH (Thyrotropin) 1.67 0.34-4.82 finding [phone] uIU/ml T-4 Free 1.25 ng/dL 0.59-1.57 CBC 12/06/2017 [facility] WBC 5.4 x10E3/uL 4.3-10.9 9 [phone] RBC 3.59 x10E6/uL Low 4.00-5.40 Hemoglobin 10.7 [...] 0.0 x10E3/uL 0.0-0.2 Eia Test For 10/10/2017 [facility] Eia Test For Negative for 10 E.Coli Toxins [phone] E.Coli Toxins E.c <SEE NOTE> Laboratory test 10/10/2017 [facility] Stool Culture Negative for 11 finding [phone] W/E.Coli Eia Cam <SEE NOTE> Cancelled Test [...] cancelled. Procedures Date Code Description Status 03/11/2019 36699 Electrocardiogram Complete Completed 11/26/2018 99697 Electrocardiogram Complete Completed 10/29/2018 55338 Electrocardiogram Complete Completed 10/11/2018 76452 Colonoscopy Flexible including collection of Completed specimen(s) by brush 09/24/2018 97238 Echocardiography 2D, With M-Mode With Spectral And Completed Color Doppler 09/21/2018 82481 Electrocardiogram Interpretation & Report Only Completed 08/17/2018 37234 Debridement,Bone,Epidermis/Dermis/Tissue/Muscle, Addtl Completed 20 SQ CM 08/17/2018 01925 Debridement Tissue/Muscle/Bone Completed 07/19/2018 42996 Nuclear Stress Intrepret &Report Completed 07/19/2018 85187 Cardiovascular Stress Test Physician Supervision Only Completed 07/16/2018 50569 Electrocardiogram Complete Completed 04/11/2018 63879 Electrocardiogram Complete Completed 03/02/2018 [id number] Colonoscopy Completed 01/22/2018 75465 Electrocardiogram Complete Completed 01/19/2018 92714 Event Recording Physician Review & Interpretation Completed 01/04/2018 05443 Event Recording,Connection And Disconnection Completed 01/04/2018 09565 Electrocardiogram Complete Completed 12/20/2017 67253 Echocardiography 2D, With M-Mode With Spectral And Completed Color Doppler 12/02/2017 14945 Electrocardiogram Interpretation & Report Only Completed 12/01/2017 12558 Electrocardiogram Interpretation & Report Only Completed 09/12/2017 52304 Electrocardiogram Interpretation & Report Only Completed 03/11/2016 20816 Remove Impact Cerumen Irrigati Completed 08/21/2013 [id number] Mammogram Completed 04/23/2013 63096 Electrocardiogram Complete Completed Encounters Type Date Location Provider Dx Diagnosis Office Visit 03/11/2019 [facility] Fox, I47.1 Supraventricular 11:00a Protivin Alex Jin MD tachycardia I10 Essential (primary) hypertension 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 resis 9:15a Surgery Yared VALDIVIA staph infct causing diseases classd elswhr Office Visit 12/27/2018 Sen Perez B95.62 Methicillin resis 8:45a Surgery Yared VALDIVIA staph infct causing diseases classd elswhr Office Visit 11/26/2018 [facility] Ignacio, I47.1 Supraventricular 10:30a Protivin TAMARA Guillen tachycardia I44.7 Left bundle-branch block, unspecified Office Visit 2018 10:45a [facility] I10 Essential Health Protivin MD Thierry (primary) hypertension I47.1 Supraventricular tachycardia B95.62 Methicillin resis staph infct causing diseases classd elsr D64.9 Anemia, unspecified 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 disc disorders w radiculopathy, lumbar region Z13.31 Encounter for screening for depression Office Visit 11/19/2018 10:00a Yared Coulter L98.9 Disorder of the Surgery skin and subcutaneous tissue, unspecified Z09 Encntr for f/u exam aft trtmt for cond oth than malamos neoplm Office Visit 10/29/2018 [facility] Dominique, I47.1 Supraventricular 2:30p Center Alex Jin MD tachycardia K81.1 Chronic cholecystitis I10 Essential (primary) hypertension L98.9 Disorder of the skin and subcutaneous tissue, unspecified Office Visit 10/22/2018 Sage Urena B95.62 Methicillin resis 11:00a Family Trupti Guadarrama MD staph infct Center causing diseases classd elswhr T81.42xA Infct fol a procedure, deep incisional surgical site, init D64.9 Anemia, unspecified I47.1 Supraventricular tachycardia I10 Essential (primary) hypertension 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 disc disorders w radiculopathy, lumbar region Office Visit 09/20/2018 11:04a [facility]-related [facility] Anne, H[employer]ICULTURAL MANAGER [facility] I10 Essential (primary) hypertension D64.9 Anemia, unspecified B95.62 Methicillin resis staph infct causing diseases classd elswhr K21.9 Gastro-esophageal reflux disease without esophagitis Office Visit 09/11/2018 11:04a [facility] Anne, HORTICULTURAL MANAGER [facility] I10 Essential (primary) hypertension D64.9 Anemia, unspecified Office Visit 09/06/2018 3:33p [facility] Laila Palacios, R54 [facility] physical debility I10 Essential (primary) hypertension D64.9 Anemia, unspecified Office Visit 08/28/2018 [facility] T81.42xA Infct fol a 3:52p Faby Rodríguez [...] w radiculopathy, lumbar region Office Visit 07/16/2018 [facility] Dominique Z01.810 Encounter for 2:00p Protivin Alex Jin MD preprocedural cardiovascular examination I10 Essential (primary) hypertension I47.1 Supraventricular tachycardia M43.07 Spondylolysis, lumbosacral region Office Visit 04/11/2018 [place] Shabazz Sage Z01.818 Encounter for other 2:00p Family Trupti Guadarrama MD preprocedural Center examination Office Visit 03/30/2018 Sage Urena 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 disc 9:45a Family Trupti Guadarrama MD disorders w Center radiculopathy, lumbar region I10 Essential (primary) hypertension I47.1 Supraventricular tachycardia D64.9 Anemia, unspecified C19 Malignant neoplasm of rectosigmoid junction K26.9 Duodenal ulcer, unsp as acute or chronic, w/o hemor or perf Office Visit 01/26/2018 10:00a [place] Shabazz Sage K26.9 Duodenal ulcer, [facility] MD Thierry unsp as acute or chronic, w/o hemor or perf C19 Malignant neoplasm of rectosigmoid junction D64.9 Anemia, unspecified I47.1 Supraventricular tachycardia 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 disc disorders w radiculopathy, lumbar region I10 Essential (primary) hypertension Office Visit 01/22/2018 [place] Harsh Fox Z01.810 Encounter for 3:00p Protivin Alex Jin MD preprocedural cardiovascular examination I47.1 Supraventricular tachycardia I10 Essential (primary) hypertension K26.9 Duodenal ulcer, unsp as acute or chronic, w/o hemor or perf Office Visit 01/15/2018 2:30p Sage Villasenor K26.9 Duodenal ulcer, [facility] MD Thierry unsp as acute or chronic, w/o hemor or perf C19 Malignant neoplasm of rectosigmoid junction D64.9 Anemia, unspecified I47.1 Supraventricular tachycardia 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 disc disorders w radiculopathy, lumbar region Office Visit 01/04/2018 Sen Fox Z01.810 Encounter for 11:00a Protivin Alex Jin MD preprocedural cardiovascular examination I47.1 Supraventricular tachycardia I10 Essential (primary) hypertension Office Visit 12/06/2017 [place] Shabazz Sage I47.1 Supraventricular 11:00a Family Trupti Guadarrama MD tachycardia Center D64.9 Anemia, unspecified K26.9 Duodenal ulcer, unsp as acute or chronic, w/o hemor or perf C19 Malignant neoplasm of rectosigmoid junction I10 Essential (primary) hypertension 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 disc disorders w radiculopathy, lumbar region Office Visit 11/16/2017 10:15a [facility] Yared Perez R19.7 Velia, unspecified 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 disc disorders w radiculopathy, lumbar region Office Visit 10/25/2017 10:15a Sage Urena R19.7 Diarrhea, Family Trupti Guadarrama MD unspecified Center 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 disc disorders w radiculopathy, lumbar region Office Visit 10/09/2017 11:00a Sage Urena R19.7 Diarrhea, Family Trupti Guadarrama MD unspecified Center 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 disc disorders w radiculopathy, lumbar region N19 Unspecified kidney failure Office Visit 09/14/2017 2:28p [facility] Traci R10.9 Unspecified Faby Rodríguez NP abdominal pain Hospital N19 Unspecified kidney failure Office Visit 09/12/2017 2:57p [facility] Yared Perez R10.9 Unspecified [facility] abdominal pain [facility] R11.10 Vomiting, unspecified Office [...] Unspec Family Trupti Guadarrama MD Center V06.1 Gclnwkqqda-Bmjqbyw-Zymruzsl Combined (DTaP) V72.83 Examination Preoperative Other Spec V72.84 Examination Preoperative Unspec 154.0 Malignant Neoplasm Rectosigmoid Junction V76.12 Screening Mammogram Malig Lamine Other Office Visit 12/31/2012 Sage Urena 726.32 Epicondylitis 1:30p Family Trupti Guadarrama MD Lateral Center Office Visit 09/27/2012 [place] Parent, 465.9 URI Upper 11:15a Family Trupti Parkinson MD Respiratory Center Infections Acute Unspec Sites Office Visit 07/20/2011 Sage Urena 465.9 URI Upper 10:30a Family Trupti Guadarrama MD Respiratory Center Infections Acute Unspec Sites 009.1 Colitis Enteritis & Gastroenteritis Presumed Infectious Orig Office Visit 01/17/2011 11:15a Sage Villasenor 486 P[facility] MD Thierry Organism Unspec Office Visit 07/06/2010 11:00a Sage Villasenor 682.9 Cellulitis & Health Center MD Thierry Abscess Unspec Site 733.00 Osteoporosis Unspec V04.81 Need For Prophylactic Vaccination & Inoculation/Influenza Office Visit 05/29/2009 Sage Urena 465.9 URI Upper 11:45a Family Trupti Guadarrama MD Respiratory Center Infections Acute Unspec Sites Office Visit 08/13/2008 Sage Urena 053.19 Herpes Zoster 2:30p Family Trupti Guadarrama MD Nervous System Center Other Office Visit 07/02/2008 Sage Urena 053.10 Herpes Zoster 3:15p Family Trupti Guadarrama MD W/Unspec Nervous Center System Complication Office Visit 06/11/2008 Sage Urena 789.00 Pain Abdominal 1:30p Family Trupti Guadarrama MD Unspec Site Center 053.9 Herpes Zoster W/O Complication 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 Office Visit 05/12/2008 Sage Urena 053.9 Herpes Zoster W/O 2:00p Family Trupti Guadarrama MD Complication Center Office Visit 03/12/2008 Sage Urena 715.90 Osteoarthrosis 10:30a Family Trupti Guadarrama MD Unspec Genlzd Or Center Localzd Site Unspec 599.0 UTI Urinary Tract Infection Site Not Spec 154.0 Malignant Neoplasm Rectosigmoid Junction Office Visit 03/04/2008 2:00p Sage Urena 599.0 UTI Urinary Tract Family Trupti Guadarrama MD Infection Site Center Not Spec Office Visit 09/11/2007 9:50a [place] Sage Shabazz V70.0 Examination Family Trupti Guadarrama MD [facility] Routine AT Health Care Facility V72.31 Routine Admissions Clerk Examination V76.10 Screening For Malignant Neoplasm Breast 790.29 Other Abnormal Glucose Office Visit 09/03/2007 [place] Sage Shabazz 627.1 Postmenopausal 2:30p [facility] MD Thierry Bleeding Center Plan of Treatment Future Appointment(s):06/24/2019 11:00 am - Wilmer Pierre PA at [facility]03/25/2019 10:45 am - Sage Shabazz MD at [facility]03/11/2019 - Alex Fox MDI47.1 Supraventricular bzthalpruveT70 Essential (primary) emnvuakzybnuI06.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 disc disorders w radiculopathy, lumbar regionRecommendations:Her blood pressure is somewhat soft today, likely due to her colitis/weight loss, etc/ Her rhythm strip today shows normal sinus rhythm. I will see her back in 3 months.
[2019-04-08 18:07] VITALS: BP 84/49
--- NOTE | 2019-04-08 18:50 | UC ---
Lower Extremity/Ankle HPI - HPI Summary HPI Summary: 78-year-old woman comes in with a chief complaint of left ankle pain and swelling after a fall this morning at home. She tripped and fell and landed on her left side. She hit her left hip knee and ankle. She tells me the knee does not hurt at all. The hip hurts some but she can move it fully and bear weight on it. She is most concerned about a left ankle is swollen and it hurts when she walks. No skin break. - History of Current Complaint Chief Complaint: UCLowerExtremity Stated Complaint: S/P FALL-LEFT ANKLE INJURY Time Seen by Provider: 04/08/19 18:29 Pain Intensity: 9 - Allergies/Home Medications Allergies/Adverse Reactions: Allergies Allergy/AdvReac Type Severity Reaction Status Date / Time codeine Allergy Rash Verified 04/08/19 18:08 Penicillins Allergy Rash Verified 04/08/19 18:09 metronidazole AdvReac Abdominal Verified 04/08/19 18:08 Pain NSAIDS (Non-Steroidal AdvReac ulcers Verified 04/08/19 18:10 Anti-Inflamma Home Medications: Home Medications Acetaminophen TAB* [Tylenol TAB*] 650 mg PO Q4H PRN 04/08/19 [History Confirmed 04/08/19] Dicyclomine CAP* [Bentyl CAP*] 10 mg PO TID PRN 04/08/19 [History Confirmed ] Folic Acid TAB* [Folvite TAB*] 1 mg PO DAILY 04/08/19 [History Confirmed ] Magnesium Oxide [Magnesium] 400 mg PO DAILY 04/08/19 [History Confirmed 04/08/19 ] Pantoprazole TAB * [Protonix TAB*] 40 mg PO BID 04/08/19 [History Confirmed ] Prochlorperazine TAB* [Compazine Tab*] 5 mg PO Q8H PRN 04/08/19 [History Confirmed 04/08/19] Sotalol HCl [Sotalol] 40 mg PO BID 04/08/19 [History Confirmed 04/08/19] Thiamine TAB* [Vitamin B-1 TAB*] 100 mg PO DAILY 04/08/19 [History Confirmed ] dilTIAZem HCl [Diltiazem HCl ER] 120 mg PO DAILY 04/08/19 [History Confirmed ] PMH/Surg Hx/FS Hx/Imm Hx Previously Healthy: Yes Cardiovascular History: Hypertension GI/ History: Gastroesophageal Reflux - Surgical History Surgical History: Yes Surgery Procedure, Year, and Place: Low back sx with hardware--2018 - Family History Known Family History: Positive: Non-Contributory - Social History Alcohol Use: None Substance Use Type: None Smoking Status (MU): Never Smoked Tobacco Review of Systems All Other Systems Reviewed And Are Negative: Yes Constitutional: Positive: Negative Skin: Positive: Negative Eyes: Positive: Negative ENT: Positive: Negative Respiratory: Positive: Negative Cardiovascular: Positive: Negative Gastrointestinal: Positive: Negative Motor: Positive: Other - see hpi Neurovascular: Positive: Negative Musculoskeletal: Positive: Other: - see hpi Neurological: Positive: Negative Psychological: Positive: Negative Is Patient Immunocompromised?: No Physical Exam Triage Information Reviewed: Yes Appearance: Well-Appearing, Well-Nourished, Pain Distress - mild with palpation of left ankle Vital Signs: Initial Vital Signs Temp 99.1 F 04/08/19 18:02 Pulse 89 04/08/19 18:02 Resp 20 04/08/19 18:02 BP 84/49 04/08/19 18:02 Pulse Ox 100 04/08/19 18:02 Vital Signs Reviewed: Yes Eye Exam: Normal Eyes: Positive: Conjunctiva Clear Neck: Positive: Supple Respiratory: Positive: No respiratory distress Musculoskeletal: Positive: Other: - Left ankle swelling and tenderness to palpation primarily in the lateral aspect. Foot is nontender to palpation normal capillary refill no sensation deficits normal dorsalis pedis pulse. Achilles tendon is nontender and intact. Knee is full range of motion nontender. The left hip greater trochanter is tender to palpation. The hip has full range of motion and the patient denies any pain with weightbearing. Neurological: Positive: Alert, Muscle Tone Normal Psychological Exam: Normal Psychological: Positive: Age Appropriate Behavior Skin Exam: Normal Lower Extremity Course/Dx - Course Course Of Treatment: I discussed the x-rays with the patient and her daughter. I see a nondisplaced fracture of the left distal fibula. I discussed this with the patient and her daughter. Radiologist reading is pending. Patient was placed in a cam boot she has a walker that she can use at home follow-up with orthopedics. - Differential Dx/Diagnosis Provider Diagnosis: Closed left fibular fracture Discharge - Sign-Out/Discharge Documenting (check all that apply): Patient Departure All imaging exams completed and their final reports reviewed: No - Discharge Plan Condition: Stable Disposition: HOME Patient Education Materials: Ankle Fracture (ED) Referrals: Kris Small MD [Medical Doctor] - Additional Instructions: FOLLOW UP WITH ORTHOPEDICS. GET REEVALUATED SOONER IF WORSE OR ANY QUESTIONS OR CONCERNS. - Billing Disposition and Condition Condition: STABLE Disposition: Home
--- NOTE | 2019-04-09 08:30 | UC ---
- Progress Note Progress Note: left ankle xray report : IMPRESSION: NONDISPLACED INTRA-ARTICULAR FRACTURE OF THE DISTAL FIBULA. Course/Dx - Diagnoses Provider Diagnoses: Closed left fibular fracture Discharge - Sign-Out/Discharge Documenting (check all that apply): Patient Departure All imaging exams completed and their final reports reviewed: Yes - Discharge Plan Condition: Stable Disposition: HOME Patient Education Materials: Ankle Fracture (ED) Referrals: Kris Small MD [Medical Doctor] - Additional Instructions: FOLLOW UP WITH ORTHOPEDICS. GET REEVALUATED SOONER IF WORSE OR ANY QUESTIONS OR CONCERNS. - Billing Disposition and Condition Condition: STABLE Disposition: Home
== END 2019-04-08 19:10 | disposition home or self-care (01) ==
LOC: UCCORT 17:36
DX: S82.832A Other fracture of upper and lower end of left fibula, initial encounter for closed fracture (principal); W01.0XXA Fall on same level from slipping, tripping and stumbling without subsequent striking against object, initial encounter; Y92.009 Unspecified place in unspecified non-institutional (private) residence as the place of occurrence of the external cause; Z88.5 Allergy status to narcotic agent; I10 Essential (primary) hypertension; K21.9 Gastro-esophageal reflux disease without esophagitis
CPT/HCPCS: 99202; G0463